=== PATIENT | male | born 1980 | race African-American/Black ===

== ENCOUNTER 2017-11-23 14:30 | Emergency (ER) | payer SELFPAY ==
[~2017-11-23] VITALS: Ht 190.5 cm; Wt 118.2 kg
[2017-11-23 15:03] VITALS: BP 117/74
== END 2017-11-23 15:11 | disposition home or self-care (01) ==
LOC: EMS 14:32
DX: R44.1 Visual hallucinations (principal); R44.0 Auditory hallucinations
CPT/HCPCS: 99284